=== PATIENT | female | born 1950 | race Hispanic/Latino ===

== ENCOUNTER 2018-01-20 10:45 | Outpatient (AMBR) | payer MEDICARE, MEDICAID, SELFPAY ==
--- NOTE | 2017-12-30 09:07 | PT.OIERPT ---
PT OP Initial Eval Patient Information Visit Reasons: back pain Medical Diagnosis: M54.5 M25.50 Treatment Dx #1: LBP Start of Care: 12/30/17 Date of Onset: 3 months ago Initial Assessment Subjective Pt is 67 yr old female with Hx of LBP with radiation down the LE's L>R worsened since she fell 3 months ago. She started walking with a 4WW last year due to the LE pain and numbness. Increased pain with bending, lifting and twisting. Pain level today is 7/10 today after taking pain meds. She lives alone at the [address] on the bottom floor and her daughter helps her with cooking and cleaning and grocery shopping. PLOF: prior to onset of LE pain pt was walking without assistive device community distances and independent with IADL's. PMH: DM, HTN, allergies, OA Imaging: X-rays in EMR, reviewed Pt goal: to have less L LE pain and LBP Objective Trunk ArOM: Extension: 20% with pain along beltline Flexion: 10 from floor with neural tension in B posterior LE's B SB 18 with pain B rotation: 40% L SLR ROM: positive LE strength: B hamstrings: 4-/5 Quads 4-/5 Hip abd/add 4-/5 TTP: B PSIS L>R, lumbar paraspinals from L2-L5 lumbar paraspinal atrophy Oswestry: 56% severe self perceived disability Assessment Pt presents with trunk ROM limitations and LBP with radiation to the LE's that limits squatting and bending tolerance. Pt has neural tension along sciatic pathway and diminished DTR's of L LE compared to R. These findings are consistent with possible lumbar disc irritation with LE radiculopathy. X-ray review reveals lumbar scoliosis, spondylosis and spurring which may be barriers to progress. Fair rehab potential to meet goals. Short Term and Spot Welder Line Goals 1. Ind with HEP 2. Improved B quad and hamstring strength to 4/5 3. Pt will improve standing tolerance to 25 minutes to do HH chores 4. Decreased muscle spasm and TTP of lumbar paraspinals from mod to min 5. Decreased Oswestry to 46% Treatment Plan 90 day POC in order to complete visits. Pt requires skilled therapy in order to increase strength, decrease pain and address aforementioned impairments. Rx may consist of Therex, Manual therapy, Neuromuscular re-education, Modalities as indicated-moist heat packs, ice packs, mechanical traction, estim Frequency and Duration 2x a week for 6 weeks Certification Dates: 12/30/17 to 03/30/18 Office Procedures PT Outpatient G-Codes Date of Service PT Date of Service: 12/30/17 G-Codes Walking & Moving Around Mobility Current Status G-Code: G8978: CK 40-60% Mobility Status G-Code: G8979: CJ 20-40% PT Procedures PT Date of Service: 12/30/17
--- NOTE | 2018-01-04 13:44 | PT.ODAYNRPT ---
PT Outpatient Daily Note Date of Service: January 04, 2018 OP Daily Note Visit Reasons: back pain Outpatient Physical Therapy Treatment Date: 01/04/18 Subjective: pt did have some back pain but doing well overall. Objective: see flow sheet. Assessment: noted pt did have limited knee extension during SLR while using the SB. when attempted to straighten them as she lifted them she made a facial expression indicating tightness or discomfort. pt was also limited in LTR using SB on both sides but after the first reps she was able to relax a bit more. pt enjoyed the hotpack prior and during ther ex to help with back pain. Plan: continue POC per PT. Length of Time (minutes) of Treatment: 30 Minutes Office Procedures PT Outpatient G-Codes Date of Service PT Date of Service: 12/30/17 G-Codes Walking & Moving Around Mobility Current Status G-Code: G8978: CK 40-60% Mobility Status G-Code: G8979: CJ 20-40% PT Procedures PT Date of Service: 12/30/17 OP PT Eval Mod Complex 30 minutes: Yes PT Procedures PT Date of Service: 01/04/18 Therapeutic Exercise 30 minutes: Yes
--- NOTE | 2018-01-08 11:44 | PT.ODAYNRPT ---
PT Outpatient Daily Note Date of Service: January 08, 2018 OP Daily Note Visit Reasons: back pain Outpatient Physical Therapy Treatment Date: 01/08/18 Subjective: pt reported feeling a little better today. Objective: see flow sheet. Assessment: observed pt getting into supine position on HP with facial expression indicating pain or discomfort. pt tolerated supine with HP during ther ex with no c/o increase pain. used manual cues to increased stretch during LTR for BLE. SLR with little knee flexion on BLE. pt finished off with sci-fit for a few mins and she did well. pt had no questions post treatment. Plan: continue POC per PT. Length of Time (minutes) of Treatment: 30 Minutes Office Procedures PT Outpatient G-Codes Date of Service PT Date of Service: 12/30/17 G-Codes Walking & Moving Around Mobility Current Status G-Code: G8978: CK 40-60% Mobility Status G-Code: G8979: CJ 20-40% PT Procedures PT Date of Service: 12/30/17 OP PT Eval Mod Complex 30 minutes: Yes PT Procedures PT Date of Service: 01/04/18 Therapeutic Exercise 30 minutes: Yes PT Procedures PT Date of Service: 01/08/18 Therapeutic Exercise 30 minutes: Yes
--- NOTE | 2018-01-14 15:07 | PT.ODAYNRPT ---
PT Outpatient Daily Note Date of Service: January 14, 2018 OP Daily Note Visit Reasons: back pain Outpatient Physical Therapy Treatment Date: 01/14/18 Subjective: pt doing well today with no complaints. Objective: see flow sheet. Assessment: pt can leave her 4WW and walk across the gym with no difficulties. pt was ok without the HP today. TC to increase a slight stretch during LTR as pt tends to increase speed with reps.more TC during SLR so that she can maintain knee extension and cued pt to tighten the quads. pt then understood how to correctly raise the LEs. the more she raises the LE the more knee flexion there is to compensate. a little difficulties during bridges due to poor activation of the core. Plan: continue POC per PT. Length of Time (minutes) of Treatment: 30 Minutes Office Procedures PT Outpatient G-Codes Date of Service PT Date of Service: 12/30/17 G-Codes Walking & Moving Around Mobility Current Status G-Code: G8978: CK 40-60% Mobility Status G-Code: G8979: CJ 20-40% PT Procedures PT Date of Service: 12/30/17 OP PT Eval Mod Complex 30 minutes: Yes PT Procedures PT Date of Service: 01/14/18 Therapeutic Exercise 30 minutes: Yes PT Procedures PT Date of Service: 01/04/18 Therapeutic Exercise 30 minutes: Yes PT Procedures PT Date of Service: 01/08/18 Therapeutic Exercise 30 minutes: Yes
--- NOTE | 2018-01-20 12:15 | PT.ODAYNRPT ---
PT Outpatient Daily Note Date of Service: January 20, 2018 OP Daily Note Visit Reasons: back pain Outpatient Physical Therapy Treatment Date: 01/20/18 Subjective: Continued LBP, walking from home to clinic with 4WW Objective: See F/S for therex Mech traction L/S x15' at 25lbs Assessment: Moderate tissue irritability limits trunk AROM and transitional movements. Good response to lumbar traction today. Plan: Continue per POC Length of Time (minutes) of Treatment: 30 Minutes Office Procedures PT Outpatient G-Codes Date of Service PT Date of Service: 12/30/17 G-Codes Walking & Moving Around Mobility Current Status G-Code: G8978: CK 40-60% Mobility Status G-Code: G8979: CJ 20-40% PT Procedures PT Date of Service: 12/30/17 OP PT Eval Mod Complex 30 minutes: Yes PT Procedures PT Date of Service: 01/14/18 Therapeutic Exercise 30 minutes: Yes PT Procedures PT Date of Service: 01/04/18 Therapeutic Exercise 30 minutes: Yes PT Procedures PT Date of Service: 01/08/18 Therapeutic Exercise 30 minutes: Yes PT Procedures PT Date of Service: 01/20/18 Traction Mechanical: Yes Therapeutic Exercise 15 minutes: Yes
== END 2018-01-28 23:59 ==
PROVIDERS: Referring Provider Internal Medicine Rheumatology; Visit Provider Internal Medicine Rheumatology
DX: I10 Essential (primary) hypertension (principal)
CPT/HCPCS: 97012; 97110; 97162; G8978; G8979

== ENCOUNTER 2018-02-25 08:30 | Outpatient (AMBR) | payer MEDICARE, MEDICAID, SELFPAY ==
--- NOTE | 2018-02-23 18:11 | PT.ODAYNRPT ---
PT Outpatient Daily Note Date of Service: February 23, 2018 OP Daily Note Visit Reasons: back pain Outpatient Physical Therapy Treatment Date: 02/23/18 Subjective: Pt returned [place] a trip [place] of [place] and reports continued LBP Objective: See F/S for therex
--- NOTE | 2018-02-23 18:18 | PT.ODS1RPT ---
PT OP Progress/Discharge Note Date of Service: February 23, 2018 Progress Note/DC Note Progress Note/Discharge Note: Progress Note Patient Information Visit Reasons: back pain Treatment Dx #1: LBP Service Continue Service or Discharge: Continue Service Discharge Date: 02/23/18 Certification Date Certification Dates: 12/30/17 to 03/30/18 Status Subjective: Pt returned from a trip [place] of state and reports continued LBP ambulating with 4WW Objective: Mechanical traction to L/S x13' at 20 lbs Trunk AROM: Extension: 20% with increased pain Flexion: 10 from floor LE strength: B hamstrings: 4-/5 Quads: 4-/5 Assessment: Good response to MHP and mechanical traction to reduce subjective LBP. Increased pain with transitional movements. Plan: Continue per POC Office Procedures PT Outpatient G-Codes Date of Service PT Date of Service: 02/23/18 G-Codes Walking & Moving Around Mobility Current Status G-Code: G8978: CK 40-60% Mobility Status G-Code: G8979: CJ 20-40% PT Procedures PT Date of Service: 02/23/18 Traction Mechanical: Yes Therapeutic Exercise 30 minutes: Yes
--- NOTE | 2018-02-25 11:31 | PT.ODAYNRPT ---
PT Outpatient Daily Note Date of Service: February 25, 2018 OP Daily Note Visit Reasons: back pain Outpatient Physical Therapy Treatment Date: 02/25/18 Subjective: The R hip is hurting today and she points to the GT Objective: Mechanical traction to L/S x13' at 20 lbs Assessment: Good response to MHP and mechanical traction to reduce subjective LBP. Increased pain with transitional movements. Plan: Continue per POC Length of Time (minutes) of Treatment: 40 Minutes Office Procedures PT Outpatient G-Codes Date of Service PT Date of Service: 02/23/18 G-Codes Walking & Moving Around Mobility Current Status G-Code: G8978: CK 40-60% Mobility Status G-Code: G8979: CJ 20-40% PT Procedures PT Date of Service: 02/23/18 Traction Mechanical: Yes Therapeutic Exercise 30 minutes: Yes
== END 2018-02-27 23:59 | disposition home or self-care (01) ==
PROVIDERS: Visit Provider Internal Medicine Rheumatology
DX: I10 Essential (primary) hypertension (principal)
CPT/HCPCS: 97012; 97110; G8978; G8979

== ENCOUNTER 2018-03-15 08:00 | Outpatient (AMBR) | payer MEDICARE, MEDICAID, SELFPAY ==
--- NOTE | 2018-03-02 12:11 | PT.ODAYNRPT ---
PT Outpatient Daily Note Date of Service: March 02, 2018 OP Daily Note Visit Reasons: back pain Outpatient Physical Therapy Treatment Date: 03/02/18 Subjective: I fell on the grass when my R leg gave out yesterday. My R hip hurts. Objective: See F/S for therex Mech traction: L/S 13' at 20 lbs MT: long axis hip distraction on R, STM to R GT and ITB x10' Assessment: Decreased exercise tolerance due to increased tissue irritability of L/S and R LE around GT region. Plan: Continue per POC Length of Time (minutes) of Treatment: 30 Minutes Office Procedures PT Procedures PT Date of Service: 03/02/18 Traction Mechanical: Yes Therapeutic Exercise 15 minutes: Yes Manual Utility Service Worker 15 minutes: Yes
--- NOTE | 2018-03-09 11:04 | PTNOTE_ITS ---
PT Outpatient Daily Note Date of Service: March 09, 2018 OP Daily Note Visit Reasons: back pain Outpatient Physical Therapy Treatment Date: 03/09/18 Subjective: The R hip and inner thigh are hurting today attributed to bones rubbing in the low back. She reports relief lasting ofr a couple of days after therapy Rx. Objective: See F/S for therex Mech traction: L/S 13' at 20 lbs Assessment: Decreased exercise tolerance due to increased tissue irritability of L/S and R LE around GT region. Plan: Continue per POC Length of Time (minutes) of Treatment: 40 Minutes Office Procedures PT Procedures PT Date of Service: 03/02/18 Traction Mechanical: Yes Therapeutic Exercise 15 minutes: Yes Manual Home Decorator 15 minutes: Yes PT Procedures PT Date of Service: 03/09/18 Traction Mechanical: Yes Therapeutic Exercise 30 minutes: Yes
--- NOTE | 2018-03-15 09:44 | PTNOTE_ITS ---
PT OP Progress/Discharge Note Date of Service: March 15, 2018 Progress Note/DC Note Progress Note/Discharge Note: DC Note Patient Information Visit Reasons: back pain Service Continue Service or Discharge: Discharge Discharge Date: 03/15/18 Status Subjective: Pt reports continued LBP that radiates down the L>R LE. Temporary relief after therapy visits. Objective: Trunk AROM: Ext: 20% with LBP Flexion: 10 : from floor B rotation: 50% of normal LE strength: Quads: R 4/5, L 4-/5 Hamstrings: R 4/5, L 4-/5 Oswestry: 40% Assessment: Pt has attended 05/12 Rx visits and made temporary relief with therapy. She has improved R LE strength to 4/5 but the L LE is weaker. She has improved Oswestry score to 40% which meets the goal but she c/o continued LBP with radiation. Pt progress likely limited by significant x-ray findings including lumbar scoliosis, spondylosis and spurring. Plan: Pt is discharged to provider for further workup Office Procedures PT Outpatient G-Codes Date of Service PT Date of Service: 03/15/18 G-Codes Walking & Moving Around Mobility Status G-Code: G8979: CJ 20-40% Mobility DC Status G-Code: G8980: CK 40-60% PT Procedures PT Date of Service: 03/02/18 Traction Mechanical: Yes Therapeutic Exercise 15 minutes: Yes Manual Shipping Support Clerk 15 minutes: Yes PT Procedures PT Date of Service: 03/09/18 Traction Mechanical: Yes Therapeutic Exercise 30 minutes: Yes PT Procedures PT Date of Service: 03/15/18 Therapeutic Exercise 30 minutes: Yes
== END 2018-03-15 08:45 | disposition home or self-care (01) ==
PROVIDERS: PCP Family Medicine; Visit Provider Internal Medicine Rheumatology
DX: I10 Essential (primary) hypertension (principal)
CPT/HCPCS: 97012; 97110; 97140; G8979; G8980

== ENCOUNTER 2020-07-10 08:06 | Outpatient (AMBR) | payer MEDICARE, MEDICAID, SELFPAY ==
--- NOTE | 2020-07-10 08:14 | PT.OIERPT ---
PT OP Initial Eval Patient Information Visit Reasons: power wheelchair eval Medical Diagnosis: power W/C evaluation Start of Care: 07/10/20 Date of Onset: 1 yr ago Initial Assessment Subjective Pt is 69 yr old female presents to therapy for W/C evaluation. She lives alone but daughter lives close and helps her with meals. Pt has noticed decreased mobility, gait distance x1 yr. Pt can ambulate short HH distances and struggles with community ambulation due to LE weakness and fatigue. PMH: cataract sx 2018, L/S DDD, C/S DDD, DM, HTN, renal insufficiency, dementia Pt goal: to get a power W/C or scooter to improve community mobility. Objective See W/C evaluation hard copy Assessment Pt presents with mobility deficits, decreased balance with gait. Pt would benefit from a power scooter for community mobility in light of poor gait and balance. Short Term and Skilled Nursing Goals Eval and D/C Treatment Plan Eval and D/C Certification Dates: 07/10/20 to 10/08/20 Office Procedures PT Procedures PT Date of Service: 07/10/20 OP PT Eval Mod Complex 30 minutes: Yes
== END 2020-07-30 23:59 | disposition home or self-care (01) ==
PROVIDERS: PCP Family Medicine; Referring Provider Family Medicine; Visit Provider Family Medicine
DX: Z46.89 Encounter for fitting and adjustment of other specified devices (principal); R26.89 Other abnormalities of gait and mobility; R53.1 Weakness; R53.83 Other fatigue; E11.9 Type 2 diabetes mellitus without complications; I10 Essential (primary) hypertension; F03.90 Unspecified dementia, unspecified severity, without behavioral disturbance, psychotic disturbance, mood disturbance, and anxiety; M19.90 Unspecified osteoarthritis, unspecified site; M48.061 Spinal stenosis, lumbar region without neurogenic claudication
CPT/HCPCS: 97162

== ENCOUNTER 2021-06-26 14:43 | Outpatient (AMBR) | payer MEDICARE, MEDICAID, SELFPAY ==
--- NOTE | 2021-06-26 14:58 | PT.OIERPT ---
PT OP Initial Eval Patient Information Visit Reasons: low back pain Medical Diagnosis: M54.5 Treatment Dx #1: M54.5 Start of Care: 06/26/21 Date of Onset: 2 months ago Initial Assessment Subjective Pt is 70 yr old female who reports LBP exacerbation x2 months. Pt has Hx of LBP and is trying to walk for exercise and reports increased pain with bending fwd and backwards and prolonged standing and walking >4 city blocks. She has pain with standing erect in the back of her legs. PLOF: pt was able to stand and walk without being limited by LBP PMH: HTN, high cholesterol Imaging: X-rays and MRI in EMR Pt goal: less LBP Objective Trunk ArOM: B SB 50% of normal with pain L>R Extension: to neutral with pain around L4-5, L5-S1 centrally Flexion: 8 from floor with LBP B rotation: 60% R SLR ROM: 45 deg. L SLR: 40 deg with posterior knee neural tension, LBP LE strength: B hamstrings: 4-/5 Quads 4-/5 Hip abd/add 4-/5 TTP: moderate paraspinals L4-5, L5-S1 Neuro: R SLR: positive Assessment Pt presents with trunk extension sensitivity and overlying myofascial pain and TTP around L4-5. Pt has lumbar extensor atrophy and pain with prolonged standing. Pt has poor/fair pelvic kinematics and difficulty finding neutral spine. These findings are consistent with lower lumbar disc dysfunction and facet irritation with stenosis. Pt requires skilled therapy in order to decrease pain and improve standing tolerance and has fair rehab potential. Short Term and Forensic Analyst Goals 1. Ind with HEP 2. Improved standing tolerance to 45 minutes with <=4/10 LBP 3. Pt will improve ambulatory distance to 6 city blocks Treatment Plan 90 day POC in order to complete visits. Pt requires skilled therapy in order to increase strength, decrease pain and address aforementioned impairments. Rx may consist of Therex, Manual therapy, Neuromuscular re-education. Modalities as indicated-moist heat packs, ice packs, mechanical traction, estim Frequency and Duration 2x a week for 6 weeks Certification Dates: 06/26/21 to 09/24/21 Office Procedures PT Treatments PT Date of Service: 06/26/21 OP PT Eval Mod Complex 30 minutes: Yes
== END 2021-06-30 23:59 | disposition home or self-care (01) ==
PROVIDERS: PCP Family Medicine; Referring Provider Family Medicine; Visit Provider Internal Medicine Rheumatology
DX: M54.50 Low back pain, unspecified (principal); I10 Essential (primary) hypertension
CPT/HCPCS: 97162

== ENCOUNTER 2021-07-24 12:25 | Outpatient (AMBR) | payer MEDICARE, MEDICAID, SELFPAY ==
--- NOTE | 2021-07-05 13:37 | PT.ODAYNRPT ---
PT Outpatient Daily Note Date of Service: 07/05/2021 OP Daily Note Visit Reasons: low back pain Outpatient Physical Therapy Treatment Date: 07/05/21 Subjective: pt came in with back pain. Objective: see flow sheet. Assessment: pt has 4WW and left it to the side of the bed so she can ambulate around the gym area. she is able to ambulate short distances. pt had difficulty getting into supine position due to pain. pt needed cuing during her stretch to keep the form and the seconds going for each rep. she seemed confused but with cuing she was able to complete the stretches. she had no difficulty getting up and down the first step with using the rails. Plan: continue POC per PT. Length of Time (minutes) of Treatment: 30 Minutes Office Procedures PT Treatments PT Date of Service: 07/05/21 Therapeutic Exercise 30 minutes: Yes
--- NOTE | 2021-07-09 14:10 | PTNOTE_ITS ---
PT Outpatient Daily Note Date of Service: 07/09/2021 OP Daily Note Visit Reasons: low back pain Outpatient Physical Therapy Treatment Date: 07/09/21 Subjective: Pt reports she is having a lot of back pain. Objective: See flow chart for therex. MT: STM w/ graston x 10mins. Assessment: Pt ambulates with shuffling gait and forward stoop posture. Mod TTP to R>L L4-L5 region. Mod tissue irritability to L/S. Pt tolerated therex well w/ minimal complaints of pain during SB LTRS to L hip adductors. Pt requires min assistance with supine to sitting. Pt requires multiple verbal and tactile cues due to pt having difficulty following directions. Plan: Cont POC per PT. Length of Time (minutes) of Treatment: 30 Minutes Office Procedures PT Treatments PT Date of Service: 07/05/21 Therapeutic Exercise 30 minutes: Yes PT Treatments PT Date of Service: 07/09/21 Therapeutic Exercise 15 minutes: Yes Manual Hydramatic Specialist 15 minutes: Yes
--- NOTE | 2021-07-18 16:49 | PTNOTE_ITS ---
PT Outpatient Daily Note Date of Service: 07/18/2021 OP Daily Note Visit Reasons: low back pain Outpatient Physical Therapy Treatment Date: 07/18/21 Subjective: pt came in with back pain upon visit. Objective: see flow sheet. Assessment: assisted pt with getting up from bed. pt has difficulty understanding cuing. not sure if she is CRAIG or she does not understand cuing. she needs multiple cuing with repetition. added thera band for her walking exercises to add resistance in which she was not pushing through the resistance. advised her to take bigger steps so she can feel the muscle fatigue. Plan: continue POC per PT. Length of Time (minutes) of Treatment: 30 Minutes COMPLAINT INVESTIGATOR Service Modifier Method I: Divide the number of min of care provided by the COMPLAINT INVESTIGATOR/NELA by the total min of care provided then multiply by 100. If greater than 11 percent modifier is required. Method II: Divide the total time of care provided to patient by 10 (round to the nearest whole number) and add 1 min. to set the minimum time requirement. If treatment total was 60 min., then 10% of 6 min Did COMPLAINT INVESTIGATOR provide more than 10% of the care?: Yes PT CQ modifier applied: CQ Modifier applied Office Procedures PT Treatments PT Date of Service: 07/05/21 Therapeutic Exercise 30 minutes: Yes PT Treatments PT Date of Service: 07/09/21 Therapeutic Exercise 15 minutes: Yes Manual Managed Care Director 15 minutes: Yes PT Treatments PT Date of Service: 07/18/21 Therapeutic Exercise 30 minutes: Yes
--- NOTE | 2021-07-24 13:19 | PTNOTE_ITS ---
PT Outpatient Daily Note Date of Service: 07/24/21 OP Daily Note Visit Reasons: low back pain Outpatient Physical Therapy Treatment Date: 07/24/21 Subjective: Pt reports high back pain level on R side of L/S with manual therapy around L3-4 region. Objective: See F/S for therex MT: STM L/S x10' around L3-4 Assessment: High tissue irritability of L/s on R side with manual therapy. Plan: Continue per POC Length of Time (minutes) of Treatment: 30 Minutes Office Procedures PT Treatments PT Date of Service: 07/24/21 Therapeutic Exercise 15 minutes: Yes Manual Hydraulic Press Operator 15 minutes: Yes PT Treatments PT Date of Service: 07/05/21 Therapeutic Exercise 30 minutes: Yes PT Treatments PT Date of Service: 07/09/21 Therapeutic Exercise 15 minutes: Yes Manual Hydraulic Press Operator 15 minutes: Yes PT Treatments PT Date of Service: 07/18/21 Therapeutic Exercise 30 minutes: Yes
--- NOTE | 2021-08-29 17:10 | PTNOTE_ITS ---
PT OP Progress/Discharge Note Date of Service: 08/29/21 Progress Note/DC Note Progress Note/Discharge Note: DC Note Patient Information Visit Reasons: low back pain Service Continue Service or Discharge: Discharge Discharge Date: 08/29/21 Status Assessment: Pt attended the initial evaluation and 4 Rx visits and when she was called she wants to D/C since she needs a procedure and to return to provider. Plan: D/C Office Procedures PT Treatments PT Date of Service: 07/24/21 Therapeutic Exercise 15 minutes: Yes Manual Global Account Manager 15 minutes: Yes PT Treatments PT Date of Service: 07/05/21 Therapeutic Exercise 30 minutes: Yes PT Treatments PT Date of Service: 07/09/21 Therapeutic Exercise 15 minutes: Yes Manual Global Account Manager 15 minutes: Yes PT Treatments PT Date of Service: 07/18/21 Therapeutic Exercise 30 minutes: Yes
== END 2021-07-30 23:59 | disposition home or self-care (01) ==
PROVIDERS: PCP Internal Medicine Rheumatology; Referring Provider Internal Medicine Rheumatology; Visit Provider Internal Medicine Rheumatology
DX: M54.50 Low back pain, unspecified (principal); R26.2 Difficulty in walking, not elsewhere classified; I10 Essential (primary) hypertension
CPT/HCPCS: 97110; 97140